=== PATIENT | male | born 1960 | race Caucasian/White ===

== ENCOUNTER → 2017-05-13 | Outpatient (CLI) | payer BC, OTHER ==
[~2017-05-13] VITALS: Ht 175.3 cm; Wt 102.4 kg
[~2017-05-13] MED LIST: ALIGN4 MG PO; ASPIRIN EC81 M1 PO; AVODART0.5 MG PO; CARAFATE1 GM/10 ML PO; CLONAZEPAM 0.50.5 M1 PER TUBE; CYCLOBENZAPRINE10 MG PO; EPA-DHA 720 SO1 EACH PO; FAMCICLOVIR500 MG PO; FLEXERIL PO; FLOMAX PO; FLOMAX0.4 MG PO; GINGER ROOT550 MG PO; HYDROCODON-ACE1 EAC4 PO; HYDROCODON-ACE1 EAC5 PO; HYDROCODON-ACE1 EAC7 PO; HYDROCODON-ACE1 EACH PO; LEVOTHYROXINE0.05 MG PO; LIDOCAINE OINTMENT; LIDODERM TOP; LUNESTA3 MG PO; LYRICA 75 MG CA75 MG PO; NEURONTIN 400400 M1 PO; NIACIN500 MG PO; NUCYNTA100 MG PO; NUCYNTA75 MG PO; OMEGA-31000 M1 PO; ONDANSETRON HCL4 M2 PO; PANTOPRAZOLE SO40 M1 PO; PRILOSEC 20 MG20 MG PO; RESTORIL15 MG PO; TRAZODONE HCL50 MG PO; XANAX XR1 MG PO; ZOLOFT25 MG PO; ZOLOFT50 MG PO
--- NOTE | ~2017-05-13 | HPC ---
[facility] [address] PAIN MANAGEMENT CONSULTATION Name: REY ZAMORA Room #: REG SRINIVAS Sebastian#: [id number] Admission: 05/13/17 Attend Phys: Aldo Sharp DO Discharge: Date of : 60 Report #: [id number] THIS REPORT FOR: //name// CC: Aldo Willams MD DATE OF SERVICE: 05/13/2017 CHIEF COMPLAINT: Neck pain, left upper extremity pain with paresthesias, right ankle pain. HISTORY OF PRESENT ILLNESS: As you know, the patient is a very pleasant 57-year-old male who returns today in followup visit with increasing neck pain, upper back pain, left upper extremity pain with paresthesias and chronic ankle pain. As you are aware, the patient suffered a bimalleolar fracture in July leading to 2 different surgical procedures. He continues to experience chronic right ankle pain from knees from the surgery and fracture. He returns also to discuss possibility of undergoing the next in a series of cervical epidural injections. He has done very well from a cervical radiculopathy standpoint with previous injections. The patient returns today for refill of medications and to discuss the possibility of undergoing the next in the series of cervical epidural injections. ALLERGIES: No known drug allergies. CURRENT MEDICATIONS: Trazodone, sucralfate, Nucynta, levothyroxine, sertraline, ondansetron, tamsulosin, lucio root, pantoprazole, omega 3 fish oil, Lunesta, niacin, aspirin, and alprazolam. SOCIAL HISTORY: The patient reports he continues to smoke 1 pack of tobacco per day. Denies IV or illicit drug use. Denies any chronic alcohol use. He is unaccompanied at today's visit. IMAGING: No new imaging available. PHYSICAL EXAMINATION: VITAL SIGNS: Blood pressure 123/80, pulse 77, respiratory rate 16, unlabored. The patient is 97% on room air, height 5 feet 9 inches tall, weight 225.8 pounds, BMI calculated 33.3. GENERAL: Well developed, well nourished, well-hydrated exogenously obese 57-year-old male who appears his stated age, placing current pain score 5/10. HEENT: Normocephalic, atraumatic. Pupils equal, round, reactive to light. EXTREMITIES: Show no clubbing, no cyanosis, no edema. MUSCULOSKELETAL: The patient shows no spinous process tenderness over the cervical region. There is some myofascial symptoms located paraspinal [address] [address] PAIN MANAGEMENT CONSULTATION Name: ZAMORAREY Room #: REG [facility].#: [id number] Admission: 05/13/17 Attend Phys: Aldo Sharp DO Discharge: Date of : 60 Report #: [id number] musculature of cervical region. Spurling's test positive left, negative right. Deep tendon reflexes at biceps, brachioradialis and triceps equal and symmetrical. The patient does have a well-healed surgical scar, both laterally and medially on the right ankle. There is some swelling around the ankle itself. ASSESSMENT: 1. Cervical radiculopathy. 2. Cervical spondylosis with radiculopathy. 3. Displacement of a cervical intervertebral disk with radiculopathy. 4. Myofascial pain. 5. Right ankle pain status post surgery. PLAN: 1. The patient has returned today in followup visit indicating increasing neck pain and left upper extremity pain typical for his cervical radiculopathy. At this point, the patient indicates pain, no greater than 5/10. He returns today specifically to reinitiate Nucynta therapy. He was doing very well on his medication. This was controlling his baseline cervical radiculopathy and other pain generators including his postherpetic neuralgia. He wishes to restart the medication at this time. He does wish to consider the possibility of undergoing a cervical epidural injection. He requested he trial 2 weeks of Nucynta therapy. If this does not improve his typical cervical radiculopathy, he would return for cervical epidural injection. I agree with this plan. I think this is a conservative way to treat symptoms initially. If they are unsuccessful, then I would move forward with a cervical epidural injection. 2. The patient and I did discuss his recent injury to his ankle. It appears that the surgery went well. He appears stabilized, well healed. He is ambulating with slight antalgic gait, but overall weightbearing effectively. We will defer to the orthopedic team about treatment for his right ankle. 3. The patient was provided a prescription of Nucynta 75 mg dose 1 tab, 4 tabs a day p.r.n. pain. I have given the patient #120, releases of today, 4 weeks from today, 8 weeks from today. He is tolerating this medication well, noted excellent efficacy with its use. We will continue to use it for baseline pain control. 4. We will see the patient back in followup visit in 3 months, earlier if he wishes to undergo the requested cervical epidural injection if medications are ineffective. <ELECTRONICALLY SIGNED> By: Aldo Sharp DO 05/14/17 0833 [id number] Aldo Sharp DO /nt
[2017-05-13 11:24] VITALS: BP 123/80
== END | disposition home or self-care (01) ==
LOC: PAIN 07:06
DX: M54.12 Radiculopathy, cervical region (principal); M47.12 Other spondylosis with myelopathy, cervical region; M50.10 Cervical disc disorder with radiculopathy, unspecified cervical region; M79.1 Myalgia; Z98.890 Other specified postprocedural states; Z68.33 Body mass index [BMI] 33.0-33.9, adult; Z79.899 Other long term (current) drug therapy; Z87.891 Personal history of nicotine dependence

== ENCOUNTER → 2018-09-22 | Outpatient (CLI) | payer BC, OTHER ==
[~2018-09-22] VITALS: Ht 175.3 cm; Wt 106.6 kg
--- NOTE | ~2018-09-22 | HPC ---
[facility] [address] [place] [address] PAIN MANAGEMENT CONSULTATION Name: REY ZAMORA RAFAEL Room #: REG SRIINVAS Sebastian#: [id number] Admission: 09/22/18 Attend Phys: Clarissa Fuentes Discharge: Date of : 60 Report #: [id number] THIS REPORT FOR: //name// CC: Clarissa Sandhue [facility] DATE OF SERVICE: 09/22/2018 CHIEF COMPLAINT: Neck pain, left upper extremity pain with paresthesias and right ankle pain. HISTORY OF PRESENT ILLNESS: This is a very pleasant 58-year-old gentleman who returns to the pain clinic today for refill of medications and increasing neck and arm pain. He tells me that he has been out of his Nucynta for at least a month. He tells me that he has been taking sparingly, sometimes 1 pill a day, sometimes several pills a day. His last scripts were given by us a year ago. He actually did not even fill his 8-week release script due to them expiring since narcotics are good for 6 months only. The patient tells me that his pain score is a 7/10 today, complains of tingly in his left arm and his neck around his left flank area from his shingles pain and he also has pain in his lower back and ankle. He tells me that his pain is worse with activity, sitting and lying down. He is better when he goes to the chiropractor, takes his medicines and repositions himself. He does not have any constipation since he has not been taking his narcotics on a daily basis or any daytime sleepiness. He would like a refill of his medications today and discuss possible options for an injection. ALLERGIES: No known drug allergies. MEDICATIONS: Nucynta 75 mg every 6 hours as needed, trazodone 50 mg at bedtime, Carafate 10 mL twice a day, Synthroid 50 mcg once daily, Zoloft 200 mg daily, Flomax 0.4 mg at bedtime, lucio root as needed, Nexium 40 mg daily, omega-3 fish oil twice a day, Lunesta 3 mg at bedtime, niacin 1000 mg daily, aspirin 81 mg daily and Xanax 1 mg daily. PQRS TODAY: He has a history of osteoarthritis in his spine and his ankle. Denies rheumatoid arthritis. Height is 5 feet 9 inches, weight is 235. BMI is 34.7. Vital signs: Blood pressure 129/90, pulse is 98, respirations 18, oxygen sat is 95. Pain score is 7/10. Fall risk, denies dizziness, does not need help walking or standing and has not fallen in the last 3 months. The patient is not on any blood thinners and denies hypertension medicines. His opioid therapy is greater than 6 weeks. He will sign an opioid contract today. His functional assessment is low. Risk assessment is low and his functional assessment is 44/70. Recreational drug use, the patient denies. He is a former smoker and occasionally drinks alcohol. We did check the prescription monitoring system on this patient and he has not filled any narcotics from our doctors in the past [address] [address] PAIN MANAGEMENT CONSULTATION Name: REY ZAMORA Room #: REG SRINIVAS Sebastian#: [id number] Admission: 09/22/18 Attend Phys: Clarissa Fuentes Discharge: Date of : 60 Report #: [id number] months, which the patient tells us this is true. His 8-week script was voided since it was greater than 6 months old. IMPRESSION: 1. Cervical radiculopathy. 2. Cervical spondylosis with radiculopathy. 3. Displacement of cervical intervertebral disk with radiculopathy. 4. Myofascial pain. 5. Right ankle pain status post surgery. We reviewed the fact that opiate medications are being used to provide analgesia adequate to support activities of daily living, not attempting to achieve a specific pain score on the 0-10 Visual Analog Scale. The current opiate medications are providing sufficient analgesia to allow the patient to participate in activities of daily living. The patient is not exhibiting any aberrant behavior suggestive of drug diversion. The patient is not having any adverse reactions to medications. The patient is not suffering from daytime somnolence or mental acuity changes. The patient is managing opiate-induced constipation with appropriate eyjo-pvm-jshrykn agents and dietary considerations. The patient was counseled on concern for caution with operating a motor vehicle while using opiate medications. A physical exam was performed and the patient's functional status was evaluated. All patients with back pain were advised against the bed rest greater than 4 days and were advised to return to normal activities. Pain score assessment was noted and the treatment plan was reviewed with the patient. All current medications, both prescribed and OTC were reviewed and reconciled on the electronic medical record. Tobacco screening was accomplished and smoking cessation was advised when indicated. BMI was noted and diet/exercise modification was recommended for all patients following outside normal parameters. I reviewed with the patient today their responsibilities to safeguard prescription medications, reviewed their responsibility to utilize medications only as prescribed by the physician. They are to seek and receive pain medications only from 1 physician group ([facility]). They are to use 1 pharmacy and keep the clinic informed if they change pharmacies. Their responsibilities include making followup visits in a timely fashion and to avoid abrupt discontinuation of medication usage. Their responsibilities further include bringing their medications (bottles from the pharmacy with residual pills) to the visit for possible confirmation of pill counts and the patient understands it is their responsibility to submit to random drug screens to ensure both that the medications prescribed are present, and that no other controlled substances are present. All prescriptions provided today were generated electronically. [address] [address] PAIN MANAGEMENT CONSULTATION Name: REY ZAMORA RAFAEL Room #: REG SRINIVAS Sebastian#: [id number] Admission: 09/22/18 Attend Phys: Clarissa Fuentes Discharge: Date of : 60 Report #: [id number] PLAN: 1. The patient returns to the clinic today for medication refill and increasing neck pain and his left upper arm pain typical for his cervical radiculopathy. Today, he tells me that he would like to have an injection if it is time in his neck. Per the records, his last cervical epidural was in 2016, so he may have an injection again. I explained to the patient that he is here for medication management today, so we will make an appointment with Dr. Aldo Sharp in the near future for him to have this epidural done. The patient is agreeable with this. 2. Prescriptions were discussed. The patient has been taking them sparingly, the Nucynta 75 mg, which is for a refill of this medication. I explained to him that we will give him one tablet 4 times a day as he has been on. This typically lasts 1-2 months depending on his pain. Since it has increased recently in his neck, he may take several and then decrease it again as he is able. We appreciate the lowest most effective dose that the patient has been using. Scripts today for #120 with 1 release in 4 weeks were given to the patient. He is tolerating this medicine with good relief of his pain when he continues to take it on a regular basis. 3. The patient will be seen in followup visit in early October and undergo the requested cervical epidural injection by Dr. Aldo Sharp for this cervical radiculopathy. The patient is seen today in collaboration with Dr. Aldo Sharp. <ELECTRONICALLY SIGNED> By: Clarissa Fuentes 09/23/18 0725 [id number] [id number] Clarissa Fuentes /nt
[2018-09-22 12:34] VITALS: BP 129/90
== END ==
LOC: PAIN 10:06
DX: M47.22 Other spondylosis with radiculopathy, cervical region (principal); M50.10 Cervical disc disorder with radiculopathy, unspecified cervical region; M79.18 Myalgia, other site; M25.571 Pain in right ankle and joints of right foot; R20.2 Paresthesia of skin

== ENCOUNTER → 2018-10-07 | Outpatient (CLI) | payer BC, OTHER ==
[~2018-10-07] VITALS: Ht 175.3 cm; Wt 110.0 kg
--- NOTE | ~2018-10-07 | HPC ---
[facility] [place] [address] [address] PAIN MANAGEMENT CONSULTATION Name: REY ZAMORA RAFAEL Room #: REG SWAT[facility]ison Sebastian#: [id number] Admission: 10/07/18 Attend Phys: Aldo Sharp DO Discharge: Date of : 60 Report #: [id number] THIS REPORT FOR: //name// CC: Aldo Willams DATE OF SERVICE: 10/07/2018 REFERRING PHYSICIAN: Ever Willams MD. CHIEF COMPLAINT: Neck pain, left upper extremity pain and paresthesias. HISTORY OF PRESENT ILLNESS: As you know, the patient is a very pleasant 58-year-old male, returning in followup visit requesting to undergo cervical epidural injection under fluoroscopic guidance to address recurrent cervical radicular symptoms. We saw the patient recently on 09/22/2018, where he was reporting pain at a 7/10. He returns today in followup visit stating his pain has not improved with tincture of time and home exercise program. He returns requesting a cervical epidural injection in hopes of improving pain. As you are aware, the patient received excellent benefit with previous injections. He rates pain today at around 5/10. He is placing his pain impact score 44/70. He denies injury or trauma, returning today to undergo cervical epidural injection. ALLERGIES: No known drug allergies. CURRENT MEDICATIONS: Nucynta 75 mg every 6 hours p.r.n. for pain, trazodone 50 mg p.o. at bedtime, sucralfate 1 gram per day, levothyroxine 50 mcg per day, sertraline 50 mg per day, ondansetron 4 mg p.r.n., tamsulosin 0.4 mg once a day, lucio root 550 mg once a day, pantoprazole 40 mg per day, omega-3 fish oil 1 tab per day, Lunesta 3 mg p.o. at bedtime, niacin 500 mg once a day, aspirin 81 mg per day, alprazolam 1 mg p.r.n. SOCIAL HISTORY: The patient denies tobacco, alcohol or illicit drug use. He is unaccompanied today. IMAGING: No new imaging available. PHYSICAL EXAMINATION: VITAL SIGNS: Blood pressure 127/80, pulse is 88, respiratory rate 16 and unlabored, the patient is 96% on room air. Height 5 feet 9 inches tall, weight 242.6 pounds, BMI calculated 35.8. GENERAL: Well-developed, well-nourished, well-hydrated, morbidly obese 58-year-old male, appears stated age, placing current pain score 5/10. HEENT: Normocephalic, atraumatic. Pupils equal, round, reactive to light. EXTREMITIES: Show no clubbing, no cyanosis, no edema. [facility] [address] [place] [address] PAIN MANAGEMENT CONSULTATION Name: REY ZAMORA [id number] Admission: 10/07/18 Attend Phys: Aldo Sharp DO Discharge: Date of : 60 Report #: [id number] MUSCULOSKELETAL: Upper extremity strength appears symmetrical 5/5, intact to light touch from C5-T1 dermatomes. Spurling test is positive left, negative right. ASSESSMENT: 1. Cervical radiculopathy. 2. Cervical spondylosis with radiculopathy. 3. Displacement of a cervical intervertebral disk with radiculopathy. 4. Myofascial pain. 5. Chronic intractable pain. PLAN: 1. The patient returns today in followup visit to undergo cervical epidural injection under fluoroscopic guidance. He has trialled conservative treatment options, but has not noted any improvement in symptoms. He returns requesting to undergo a cervical epidural injection in hopes of improving pain. He has been advised risks and benefits, states understood and wished to proceed. 2. No medication changes made at today's visit. The patient to continue current medical therapy as previously prescribed. 3. We will see the patient back in followup visit on an as needed basis for possible next in the series of cervical epidural injections. PROCEDURE NOTE DESCRIPTION OF PROCEDURE: C7-T1 cervical epidural steroid injection under fluoroscopic guidance. After obtaining written consent, the patient was taken back to fluoroscopy suite, placed in prone position with separate pillows under chest and forehead to decrease cervical lordosis. Skin overlying cervical area then prepped and draped in aseptic fashion. C7-T1 cervical interspace identified by AP fluoroscopy. Skin and subcutaneous tissue overlying target site of injection was anesthetized with 3 mL of 1% lidocaine. A 20-gauge 3-1/2 inch Tuohy needle advanced under fluoroscopic guidance towards the epidural space using a midline approach. Epidural space identified using loss of resistance to air technique. After negative aspiration for heme or cerebrospinal fluid, 1 mL of Omnipaque injected. A cervical epidurogram confirmed using both AP and lateral fluoroscopy. After negative aspiration for heme or cerebrospinal fluid, 5 mL of a solution containing 2 mL 40 mg per mL, 80 mg total triamcinolone, 3 mL lidocaine 1% injected slowly. Needle retracted alf, flushed with 1 mL of 1% lidocaine. Needle was then removed. Sterile bandage placed over injection site. No new motor deficits present in the upper extremities following procedure. The patient tolerated procedure well, carefully escorted to recovery room in [address] [place] [address] PAIN MANAGEMENT CONSULTATION Name: REY ZAMORA Room #: REG SRINIVAS Sebastian#: [id number] Admission: 10/07/18 Attend Phys: Aldo Sharp DO Discharge: Date of : 60 Report #: [id number] stable condition. No apparent complications. After meeting discharge criteria, the patient discharged home. By: 0722 [id number] Aldo Sharp DO /nt
[2018-10-07 11:23] VITALS: BP 127/80
--- NOTE | 2018-10-07 11:41 | NUR ---
Pain Clinic Assessment: 1. History of Osteoarthritis: spine History of Rheumatoid Arthritis: Not Applicable 2. Height: 5 ft. 9 in. 175.3 cm. Weight: 242.6 lb. oz. 110.043 kg. Patient's BMI: 35.8 3. Vital Signs: BP: 127/80 Pulse: 88 Resp: 16 Temp: 02 Sat: 96 ECG Mon: 4. Pain Intensity: 5 5. Fall Risk: Dizziness: N Needs help standing or walking: N Fallen in the last 3 months: N Fall risk comments: 6. Patient on Blood Thinner: None 7. History of Hypertension: N 8. Opioid Therapy greater than 6 weeks: Y Opiate Contract Signed: 9. Risk Assessment Tool Provided: low-2 10. Functional Assessment Tool: / 11. Recreational Drug Use: Never Drug Type: Tobacco Use: Former Smoker Tobacco Type: Amount or Packs/day: How Many Years: Alcohol Use: Yes Frequency: Special Occasions Quant: 1-2
== END | disposition home or self-care (01) ==
LOC: PAIN 08:54
DX: M54.12 Radiculopathy, cervical region (principal); M54.2 Cervicalgia; Z79.82 Long term (current) use of aspirin; Z79.899 Other long term (current) drug therapy; Z87.891 Personal history of nicotine dependence

== ENCOUNTER → 2019-06-22 | Outpatient (CLI) | payer BC, OTHER ==
[~2019-06-22] VITALS: Ht 175.3 cm; Wt 105.7 kg
[~2019-06-22] MED LIST changes: +FLONASE 0.05%50 MCG NASAL; +VOLTAREN GEL 1100 G2 TOP; +ZETIA10 MG PO
[2019-06-22 10:04] VITALS: BP 126/80
--- NOTE | 2019-06-22 10:16 | NUR ---
Pain Clinic Assessment: 1. History of Osteoarthritis: spine History of Rheumatoid Arthritis: Not Applicable 2. Height: 5 ft. 9 in. 175.3 cm. Weight: 233.0 lb. oz. 105.688 kg. Patient's BMI: 34.4 3. Vital Signs: BP: 126/80 Pulse: 65 Resp: 14 Temp: 02 Sat: 96 ECG Mon: 4. Pain Intensity: 8-9 5. Fall Risk: Dizziness: N Needs help standing or walking: N Fallen in the last 3 months: N Fall risk comments: 6. Patient on Blood Thinner: None 7. History of Hypertension: N 8. Opioid Therapy greater than 6 weeks: Y Opiate Contract Signed: 09/22/18 9. Risk Assessment Tool Provided: low-2 10. Functional Assessment Tool: 11. Recreational Drug Use: Never Drug Type: Tobacco Use: Former Smoker Tobacco Type: Amount or Packs/day: How Many Years: Alcohol Use: Yes Frequency: Special Occasions Quant:
--- NOTE | 2019-06-23 08:36 | HPC ---
[facility] [address] [place] [address] PAIN MANAGEMENT CONSULTATION Name: REY ZAMORA RAFAEL Room #: REG SRINIVAS Sebastian#: [id number] Admission: 06/22/19 ������������������ Attend Phys: Clarissa Fuentes Discharge: ������������������ Date of : 60 Report #: [id number] THIS REPORT FOR: //name// CC: Clarissa Blue MD DATE OF SERVICE: 06/22/2019 CHIEF COMPLAINT: Neck pain, left upper extremity pain and paresthesias and right ankle pain. HISTORY OF PRESENT ILLNESS: This is a very pleasant 59-year-old gentleman who returns to the pain clinic today for refill of his medications that he uses to help treat his ongoing cervical radiculopathy as well as occasional low back pain and right ankle pain. He reports a pain score of 8-9 today. He tells me it is a burning numbness along his postherpetic neuralgia area in his midback that radiates around to his left side, that he also has ongoing pain in his neck that radiates from his neck into his arm as well as right ankle pain from a previous fracture. The weather increases his pain as well as activity, that he finds periodic epidurals injections as well as repositioning and medications very beneficial. The patient reports that his cervical epidural that he received in October helped until about a month ago, at least 70%. He said initially he had no pain at all and then has gradually returned. He is wondering about another injection since it has been almost 9 months since the previous one. ALLERGIES: No known drug allergies. CURRENT LIST OF MEDICATIONS: Flonase, Zetia 10 mg daily, Nucynta 75 mg p.r.n., trazodone 50 mg at bedtime, Carafate p.r.n., Synthroid 50 mcg daily, Zoloft 250 mg daily, Flomax 0.4 mg at bedtime, Protonix 40 mg b.i.d., fish oil, Lunesta 3 mg at bedtime, aspirin 81 mg daily, Xanax 1 mg daily and Advil p.r.n. PQRS: 1. 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 Denies any rheumatoid arthritis. 2. Height is 5 feet 9 inches, weight is 233, BMI is 34. 3. Vital signs 126/80, pulse is 65, respirations 14, oxygen sat is 96. 4. Pain score is 8-9. 5. Denies dizziness, does not need help walking or standing, has not fallen in the last 3 months. 6. The patient is not on any blood thinners and does not take medicine for hypertension. [address] [address] PAIN MANAGEMENT CONSULTATION Name: REY ZAMORA Room #: REG SRINIVAS Sebastian#: [id number] Admission: 06/22/19 ������������������ Attend Phys: Clarissa Fuentes Discharge: ������������������ Date of : 60 Report #: [id number] 7. Opioid therapy is greater than 6 weeks; therefore, an opioid signed contract is on the chart. Risk assessment tool is low. Functional assessment is 44/70. 8. Recreational drug use, he denies. He is a former smoker and occasionally drinks alcohol. According to the prescription monitoring system, the patient's last fill of his Nucynta was in March. He does take this medication very sparingly. We last gave him his medication in September. PHYSICAL EXAMINATION: GENERAL: This is a well-developed, well-nourished, well-hydrated, morbidly obese 59-year-old gentleman who appears his stated age, placing his current pain score at 8-9 today. HEENT: Normocephalic, atraumatic. Pupils equal, round and reactive to light. EXTREMITIES: No clubbing, no cyanosis, no edema. MUSCULOSKELETAL: Upper extremity strength appears symmetrical at 5/5, does complain of neck pain that radiates into his left arm following the C5-T1 dermatomal distribution, also has some burning in his thoracic spine following his normal peripheral neuropathy, postherpetic neuropathy location. The patient also complains of right ankle tenderness with slight edema present today. ASSESSMENT: 1. Cervical radiculopathy. 2. Cervical spondylosis with radiculopathy. 3. Displacement of cervical intervertebral disk with radiculopathy. 4. Myofascial pain. 5. Chronic intractable pain. 6. Osteoarthritis of the right ankle. 7. Postherpetic neuralgia. He has had multiple bouts of shingles. We reviewed the fact that opiate medications are being used to provide analgesia adequate to support activities of daily living, not attempting to achieve a specific pain score on the 0-10 Visual Analog Scale. The current opiate medications are providing sufficient analgesia to allow the patient to participate in activities of daily living. The patient is not exhibiting any aberrant behavior suggestive of drug diversion. The patient is not having any adverse reactions to medications. The patient is not suffering from daytime somnolence or mental acuity changes. The patient is managing opiate-induced constipation with appropriate sjqp-jwf-zepvubj agents and dietary considerations. The patient was counseled on concern for caution with operating a motor vehicle while using opiate medications. A physical exam was performed and the patient's functional status was evaluated. All patients with back pain were advised against the bed rest greater than 4 days and were advised to return to normal activities. Pain score assessment was noted and the treatment plan was reviewed with the patient. All current [facility] [address] [place] [address] PAIN MANAGEMENT CONSULTATION Name: REY ZAMORA RAFAEL Room #: REG CL Romulo#: [id number] Admission: 06/22/19 ������������������ Attend Phys: Clarissa MORALES Rosadoyolette Discharge: ������������������ Date of : 60 Report #: [id number] medications, both prescribed and OTC were reviewed and reconciled on the electronic medical record. Tobacco screening was accomplished and smoking cessation was advised when indicated. BMI was noted and diet/exercise modification was recommended for all patients following outside normal parameters. I reviewed with the patient today their responsibilities to safeguard prescription medications, reviewed their responsibility to utilize medications only as prescribed by the physician. They are to seek and receive pain medications only from 1 physician group ( [facility]). They are to use 1 pharmacy and keep the clinic informed if they change pharmacies. Their responsibilities include making followup visits in a timely fashion and to avoid abrupt discontinuation of medication usage. Their responsibilities further include bringing their medications (bottles from the pharmacy with residual pills) to the visit for possible confirmation of pill counts and the patient understands it is their responsibility to submit to random drug screens to ensure both that the medications prescribed are present, and that no other controlled substances are present. All prescriptions provided today were generated electronically. PLAN: 1. We discussed treatment options with the patient today. I believe the patient would benefit from another cervical epidural since it has been 9 months since his previous injection. He gets significant benefit from these procedures. I will schedule him with Dr. Aldo Sharp in the next week to have a cervical epidural injection performed. 2. We will refill his Nucynta 75 mg, #120 for today and 4-week release. The patient takes these very sparingly and he safeguards them when he is not using them. He finds they are beneficial in helping with some of his postherpetic neuralgia as well as his ongoing cervical radiculopathy pain and osteoarthritis. He denies any problems with constipation when he takes this medication. 3. The patient is complaining of increased right ankle pain from a previous fracture from several years ago. We will try some Voltaren gel that he can use on this ankle when his pain has flared. Scripts given for 2 tubes with 2 additional refills. 4. The patient is seen in collaboration with Dr. Aldo Sharp today. ��������������������������������������������� <ELECTRONICALLY SIGNED> ���������������������������������������� By: Clarissa Fuentes ��������������������������������������������� 06/23/19 0836 [id number] Clarissa Fuentes /sandy
== END ==
LOC: PAIN 06:48
DX: M47.22 Other spondylosis with radiculopathy, cervical region (principal); M50.10 Cervical disc disorder with radiculopathy, unspecified cervical region; M79.18 Myalgia, other site; M19.071 Primary osteoarthritis, right ankle and foot; G89.4 Chronic pain syndrome; B02.29 Other postherpetic nervous system involvement; Z79.899 Other long term (current) drug therapy

== ENCOUNTER → 2019-06-29 | Outpatient (CLI) | payer BC, OTHER ==
[~2019-06-29] VITALS: Ht 175.3 cm; Wt 105.7 kg
--- NOTE | ~2019-06-29 | HPC ---
[facility] [place] [address] [address] PAIN MANAGEMENT CONSULTATION Name: REY ZAMORA RAFAEL Room #: REG SRINIVAS Romulo#: [id number] Admission: 06/29/19 Attend Phys: Aldo Sharp DO Discharge: Date of : 60 Report #: [id number] THIS REPORT FOR: //name// CC: Aldo Willams MD DATE OF SERVICE: 06/29/2019 CHIEF COMPLAINT: Neck pain, left upper extremity pain with paresthesias. HISTORY OF PRESENT ILLNESS: As you know, the patient is a very pleasant 59-year-old male who returns today in followup visit to undergo cervical epidural injection under fluoroscopic guidance. He was seen in our clinic on 06/22/2019 for medication management. At that visit, he had requested a cervical epidural injection. He made today's appointment to undergo the procedure. The patient denies injury or trauma that may have led to symptom continuation and progressive worsening. He returns today in followup visit to undergo the cervical epidural injection in hopes of building on success of previous intervention. The patient reports improvement with the previous cervical epidural injection of about 80%. This in combination with the medications work well for pain control. He returns to undergo this epidural injection today. ALLERGIES: No known drug allergies. CURRENT MEDICATIONS: Flonase, Zetia, Nucynta, trazodone, Carafate, Synthroid, Zoloft, Flomax, Protonix, Lunesta, aspirin, and Xanax. SOCIAL HISTORY: The patient denies tobacco, alcohol, IV or illicit drug use. He is unaccompanied today. IMAGING: No new imaging available. PHYSICAL EXAMINATION: VITAL SIGNS: Blood pressure 134/94, pulse 72, respiratory rate 14 and unlabored. The patient is 97% on room air. Height 5 feet 9 inches tall, weight 266 pounds, BMI calculated 34.4. GENERAL: Well-developed, well-nourished, well-hydrated 59-year-old male, appearing stated age, placing current pain score at 8/10. HEENT: Normocephalic, atraumatic. Pupils equal, round, and reactive to light. EXTREMITIES: Show no clubbing, no cyanosis, no edema. MUSCULOSKELETAL: Upper extremity strength is symmetrical 5/5. Spurling's test positive left, negative right. Cervical provocation testing is met with increasing pain with leftward rotation and lateral flexion. There does not appear to be any change in pain with forward flexion or extension. Muscle bulk [address] [address] PAIN MANAGEMENT CONSULTATION Name: REY ZAMORA Room #: REG [facility]#: [id number] Admission: 06/29/19 Attend Phys: Aldo Sharp DO Discharge: Date of : 60 Report #: [id number] and tone is symmetrical in comparing left and right upper extremities. He is intact to light touch from C5 through T1 dermatomes. ASSESSMENT: 1. Cervical radiculopathy. 2. Cervical spondylosis with radiculopathy. 3. Displacement of cervical intervertebral disk with radiculopathy. 4. Chronic intractable pain. 5. Osteoarthritis of the ankle. PLAN: 1. The patient has returned today in followup visit to undergo cervical epidural injection under fluoroscopic guidance. This in combination with medication management provides excellent benefit and pain control up to 80% improvement in overall pain. He returns today requesting the injection to be provided today. I have advised him of the risks and the benefits of this procedure. These risks include but are not necessarily limited to bleeding, bruising, infection, worsening pain, no relief of pain, also risk of temporary or permanent muscle weakness, temporary or permanent nerve damage, possible paralysis, and . The patient states understood and wished to proceed. 2. No medication changes made at today's visit. The patient will continue current medical therapy as previously prescribed. 3. We will see the patient back in followup visit on an as-needed basis, possible next in a series of cervical epidural injections. Otherwise, we will see him back for medication management in 3 months. PROCEDURE NOTE DESCRIPTION OF PROCEDURE: C7-T1 cervical epidural steroid injection under fluoroscopic guidance. After obtaining written consent, the patient was taken back to fluoroscopy suite, placed in prone position with separate pillows under chest and forehead to decrease cervical lordosis. Skin overlying the cervical area then prepped and draped in aseptic fashion. The C7-T1 cervical interspace identified by AP fluoroscopy. Skin and subcutaneous tissue overlying target site of injection anesthetized with 3 mL of 1% lidocaine. A 20-gauge 3-1/2 inch Tuohy needle advanced under fluoroscopic guidance towards the epidural space using midline approach. Epidural space identified using loss of resistance to air technique. After negative aspiration for heme or cerebrospinal fluid, 1 mL of Omnipaque injected. A cervical epidurogram confirmed using both AP and lateral fluoroscopy. After negative aspiration for heme or cerebrospinal fluid, 5 mL of a solution containing 2 mL 40 mg per mL, 80 mg total triamcinolone along with 3 mL of lidocaine 1% injected slowly. Needle retracted at approximately half way, flushed with 1 mL of 1% lidocaine and then [address] [address] PAIN MANAGEMENT CONSULTATION Name: REY ZAMORAN Room #: REG CLI LocBhavesh#: [id number] Admission: 06/29/19 Attend Phys: Aldo Sharp DO Discharge: Date of : 60 Report #: [id number] removed. Sterile bandage placed over injection site. No new motor deficits present in lower extremity following the procedure. The patient tolerated the procedure well, carefully escorted to recovery room in stable condition. No apparent complications. After meeting discharge criteria, the patient was discharged home. By: [id number] Aldo Sharp DO /nt
[2019-06-29 12:39] VITALS: BP 134/94
--- NOTE | 2019-06-29 12:40 | NUR ---
Pain Clinic Assessment: 1. History of Osteoarthritis: spine History of Rheumatoid Arthritis: Not Applicable 2. Height: 5 ft. 9 in. 175.3 cm. Weight: 233.0 lb. oz. 105.688 kg. Patient's BMI: 34.4 3. Vital Signs: BP: 134/94 Pulse: 72 Resp: 14 Temp: 02 Sat: 97 ECG Mon: 4. Pain Intensity: 8 5. Fall Risk: Dizziness: N Needs help standing or walking: N Fallen in the last 3 months: N Fall risk comments: 6. Patient on Blood Thinner: None 7. History of Hypertension: N 8. Opioid Therapy greater than 6 weeks: Y Opiate Contract Signed: 09/22/18 9. Risk Assessment Tool Provided: low-2 10. Functional Assessment Tool: 11. Recreational Drug Use: Never Drug Type: Tobacco Use: Former Smoker Tobacco Type: Amount or Packs/day: How Many Years: Alcohol Use: Yes Frequency: Quant:
== END | disposition home or self-care (01) ==
LOC: PAIN 06:58
DX: M47.22 Other spondylosis with radiculopathy, cervical region (principal); M50.20 Other cervical disc displacement, unspecified cervical region; G89.29 Other chronic pain; M19.079 Primary osteoarthritis, unspecified ankle and foot; Z79.899 Other long term (current) drug therapy; Z79.82 Long term (current) use of aspirin; Z87.891 Personal history of nicotine dependence

== ENCOUNTER → 2019-09-07 | Outpatient (CLI) | payer BC, OTHER ==
[~2019-09-07] VITALS: Ht 175.3 cm; Wt 101.2 kg
[~2019-09-07] MED LIST changes: -LEVOTHYROXINE0.05 MG PO; +SYNTHROID75 MCG PO; +VOLTAREN GEL 1100 G1 TOP
[2019-09-07 08:59] VITALS: BP 142/100
--- NOTE | 2019-09-07 09:17 | NUR ---
Pain Clinic Assessment: 1. History of Osteoarthritis: spine History of Rheumatoid Arthritis: denies 2. Height: 5 ft. 9 in. 175.3 cm. Weight: 223.0 lb. oz. 101.152 kg. Patient's BMI: 32.9 3. Vital Signs: BP: 142/100 Pulse: 70 Resp: 14 Temp: 02 Sat: 98 ECG Mon: 4. Pain Intensity: 8-9 5. Fall Risk: Dizziness: N Needs help standing or walking: N Fallen in the last 3 months: N Fall risk comments: 6. Patient on Blood Thinner: None 7. History of Hypertension: N 8. Opioid Therapy greater than 6 weeks: Y Opiate Contract Signed: 09/22/18 9. Risk Assessment Tool Provided: low-2 10. Functional Assessment Tool: 11. Recreational Drug Use: Never Drug Type: Tobacco Use: Former Smoker Tobacco Type: Amount or Packs/day: How Many Years: Alcohol Use: Yes Frequency: Special Occasions Quant:
--- NOTE | 2019-09-08 12:58 | HPC ---
[facility] [address] [place] [address] PAIN MANAGEMENT CONSULTATION Name: REY ZAMORA RAFAEL Room #: REG [facility] LocBhavesh#: [id number] Admission: 09/07/19 Attend Phys: Aldo Sharp DO Discharge: Date of : 60 Report #: [id number] THIS REPORT FOR: //name// CC: Aldo Willams MD DATE OF SERVICE: 09/07/2019 CHIEF COMPLAINT: Low back pain. HISTORY OF PRESENT ILLNESS: As you know, the patient is a very pleasant 59-year-old male with recurrent low back pain. The patient is able to locate pain directly over the facet joints of the lower lumbar spine. He denies specific injury or trauma that may have led to symptom occurrence. He has trialled conservative hxty-fev-trkdizq medications, even sought evaluation with his PCP. He continues to utilize exercise programs at home, but has not noticed much in the way of improvement. He has been referred back to our service to discuss interventional treatment options. ALLERGIES: No known drug allergies. CURRENT MEDICATIONS: See list. SOCIAL HISTORY: The patient denies tobacco, alcohol, IV or illicit drug use. He is working, not receiving workmen's compensation, unaccompanied today. IMAGING: No new imaging available. PHYSICAL EXAMINATION: VITAL SIGNS: Blood pressure 142/100, pulse is 70, respiratory rate 14 and unlabored. The patient is 98% on room air. Height 5 feet 9 inches tall, weight 223 pounds, BMI calculated 32.9. GENERAL: Well-developed, well-nourished, well-hydrated 59-year-old male appearing stated age, pain is rated around 8-9/10. HEENT: Normocephalic, atraumatic. Pupils equal, round, and reactive to light. Extraocular muscles are intact. NEUROLOGIC: Speech fluent. The patient deemed a good historian. EXTREMITIES: Show no clubbing, no cyanosis, no edema. MUSCULOSKELETAL: There is palpatory tenderness over the paraspinal musculature of lower lumbar spine. No spinous process tenderness. Seated straight leg raising negative. Supine straight leg raising negative. Nuha's test is negative. Modified Gaenslen's positive for axial low back pain. Ankle clonus negative. Babinski is negative. Muscle bulk and tone equal and symmetrical in comparing lower extremity musculature. Lumbar provocation testing including extension, rotation, lateral flexion all intensifies axial back pain. No [address] [address] PAIN MANAGEMENT CONSULTATION Name: REY ZAMORA Room #: REG CLI BhaveshBhavesh#: [id number] Admission: 09/07/19 Attend Phys: Aldo Sharp DO Discharge: Date of : 60 Report #: [id number] radiation of symptoms. ASSESSMENT: 1. Lumbosacral spondylosis without radiculopathy. 2. Facet arthropathy of the lumbar spine. 3. Chronic low back pain. PLAN: 1. Based on today's physical exam, the history the patient has provided, the description the patient uses in regards to pain as well as the location of symptoms, likely source of the patient's pain is the facet joints of the lower lumbar spine. The patient is able to localize pain directly over the L5-S1 facet joints bilaterally. Provocation testing does confirm facet arthropathy generated symptoms. We discussed with the patient the treatment options and following were discussed today. We discussed with the patient the treatment options for facet arthropathy pain include physical therapy, stretching exercise, core strengthening and a concerted effort at weight loss. We discussed medication management utilizing nonsteroidal anti-inflammatories. We discussed intra-articular facet injections, medial branch nerve blocks and radiofrequency lesioning as treatment options. We also discussed surgical options, though I do not feel the patient is a candidate at this time. After reviewing the risks and benefits of all the proposed treatment options, the patient chose to begin with intra-articular facet injections under fluoroscopic guidance. 2. The patient was advised risks and benefits of intra-articular facet injections. These risks include but are not necessarily limited to bleeding, bruising, infection, worsening of pain, no relief of pain, also risk of temporary or permanent muscle weakness, temporary or permanent nerve damage, possible paralysis, post-dural puncture headache and . The patient states understood and wished to proceed. 3. No medication changes made at today's visit. The patient will continue current medical therapy as previously prescribed. 4. We will see the patient back in followup visit on an as needed basis for next in the series of intra-articular facet injections. PROCEDURE NOTE DESCRIPTION OF PROCEDURE: Bilateral L5-S1 intra-articular facet injections under fluoroscopic guidance. This is the first procedure of the first series that the patient is undergoing. After obtaining written consent, the patient was taken back to the fluoroscopy suite and placed in a prone position with a pillow under the abdomen to decrease the lumbar lordosis and to facilitate needle entry into the facet joints. [facility] [address] [place] [address] PAIN MANAGEMENT CONSULTATION Name: REY ZAMORAN Room #: REG SRINIVAS Sebastian#: [id number] Admission: 09/07/19 Attend Phys: Aldo Sharp DO Discharge: Date of : 60 Report #: [id number] skin overlying the lumbosacral area was prepped and draped in an aseptic fashion. AP and lateral fluoroscopic imaging was obtained. Optimal position of the fluoroscope occurred when the joint line was first visualized. The facet joints were identified radiographically directed adjacent to the superior articular process of the caudad vertebrae. The skin overlying the target site of injection was anesthetized using 3 mL of 1% lidocaine. A 22-gauge 3-1/2 inch spinal needle with a bent tip was advanced towards the L5-S1 facet joints on the right and left side under fluoroscopic guidance. The firm posterior capsule had its characteristic feel and the needle was advanced a few additional millimeters beyond the joint capsule into the joint space, but not into the articular cartilage. After the joint space was entered and aspiration was negative for heme or CSF, 0.2 mL of Omnipaque was injected demonstrating a characteristic facet arthrogram. After negative aspiration for heme or CSF, 1.5 mL of a solution containing 1 mL, 40 mg per mL, 40 mg total triamcinolone and 0.5 mL of bupivacaine 0.5% was slowly injected at each of 2 facets. The needle was then removed. There were no apparent complications. The patient tolerated the procedure well and was carefully escorted to the recovery room in stable condition. The VAS was 8-9/10 before the procedure and 0/10 ten minutes after the procedure. After meeting discharge criteria, the patient was discharged home. <ELECTRONICALLY SIGNED> By: Aldo Sharp DO 09/08/19 [id number] Aldo Sharp DO /nt
== END | disposition home or self-care (01) ==
LOC: PAIN 06:46
DX: M54.5 Low back pain (principal); M47.817 Spondylosis without myelopathy or radiculopathy, lumbosacral region; M47.816 Spondylosis without myelopathy or radiculopathy, lumbar region; G89.29 Other chronic pain; Z79.899 Other long term (current) drug therapy; Z79.82 Long term (current) use of aspirin; Z87.891 Personal history of nicotine dependence

== ENCOUNTER → 2020-05-16 | Outpatient (CLI) | payer BC, OTHER ==
[~2020-05-16] VITALS: Ht 175.3 cm; Wt 105.1 kg
[~2020-05-16] MED LIST changes: +LEVO-T100 MCG PO
[2020-05-16 10:22] VITALS: BP 112/83
--- NOTE | 2020-05-16 10:43 | NUR ---
Pain Clinic Assessment: 1. History of Osteoarthritis: spine History of Rheumatoid Arthritis: denies 2. Height: 5 ft. 9 in. 175.3 cm. Weight: 231.8 lb. oz. 105.144 kg. Patient's BMI: 34.2 3. Vital Signs: BP: 112/83 Pulse: 80 Resp: 16 Temp: 02 Sat: 96 ECG Mon: 4. Pain Intensity: 7-8 5. Fall Risk: Dizziness: N Needs help standing or walking: N Fallen in the last 3 months: N Fall risk comments: 6. Patient on Blood Thinner: xarelto 7. History of Hypertension: N 8. Opioid Therapy greater than 6 weeks: Y Opiate Contract Signed: 09/22/18 9. Risk Assessment Tool Provided: low-2 10. Functional Assessment Tool: 11. Recreational Drug Use: Never Drug Type: Tobacco Use: Former Smoker Tobacco Type: Amount or Packs/day: How Many Years: Alcohol Use: Yes Frequency: Special Occasions Quant: 1
--- NOTE | 2020-05-17 11:01 | HPC ---
[facility] [address] [place] [address] PAIN MANAGEMENT CONSULTATION Name: REY ZAMORA RAFAEL Room #: REG SRINIVAS GonzalezBhaveshTianBhavesh#: [id number] Admission: 05/16/20 Attend Phys: Aldo Sharp DO Discharge: Date of : 60 Report #: [id number] THIS REPORT FOR: cc: Ever Willams MD, Rene P. MD Johnson, James E. DO ~ DATE OF SERVICE: 05/16/2020 REFERRING PHYSICIAN: Ever Willams MD CHIEF COMPLAINT: Neck pain, left upper extremity pain with paresthesias. HISTORY OF PRESENT ILLNESS: As you know, the patient is a very pleasant 60-year-old male who returns today in followup visit with recurrent neck pain, left upper extremity pain with paresthesias. The patient reports typical distribution of his cervical radiculopathy. He indicates no injury or trauma that may have led to recurrence of symptoms. He states he has tried his best to maintain a limited level of activity and egiz-ibp-gkujjur medications to control his symptoms, which reoccurred mid pandemic. The patient was resistant to return to undergo cervical epidural injections as he was fearful of the exposure potentials to COVID-19. He reports today pain level of 7-8/10, describes the pain as constant numbness, tingling, sharp and aching. He returns today to undergo cervical epidural injection under fluoroscopic guidance and to receive refills of his Nucynta, he takes for pain control with good effects. ALLERGIES: No known drug allergies. CURRENT MEDICATIONS: Levothyroxine 100 mcg per day, Voltaren gel 1% solution apply topically up to 4 times a day, Nucynta 75 mg every 6 hours p.r.n. for pain, alprazolam 1 mg once a day, Lunesta 3 mg p.o. at bedtime, pantoprazole 40 mg once a day, tamsulosin 0.4 mg once a day, ondansetron 4 mg p.r.n., sertraline 50 mg per day, sucralfate 1 gram 3 times a day, trazodone 50 mg p.o. at bedtime, Zetia 10 mg per day, fluticasone 2 sprays each nostril per day. IMAGING: No new imaging available. PHYSICAL EXAMINATION: VITAL SIGNS: Blood pressure 112/83, pulse 80, respiratory rate 16 and unlabored. The patient is 96% on room air. Height 5 feet 9 inches tall. Weight 231.8 pounds, BMI calculated 34.2. GENERAL: Well-developed, well-nourished, well-hydrated exogenously obese 60-year-old male appearing stated age, pain is rated today at approximately 7-8/10. HEENT: Normocephalic, atraumatic. Pupils equal, round and reactive. Extraocular muscles are intact. [address] [address] PAIN MANAGEMENT CONSULTATION Name: ERY ZAMORA [facility] #[facility] [id number] Admission: 05/16/20 Attend Phys: Aldo Sharp DO Discharge: Date of : 60 Report #: [id number] NEUROLOGIC: Speech fluent. The patient deemed a good historian. EXTREMITIES: Show no clubbing, no cyanosis, no edema. MUSCULOSKELETAL: Upper extremity strength appears symmetrical 5/5. Muscle bulk and tone equal and symmetrical in comparing left upper extremity to right. Deep tendon reflexes are symmetrical at biceps, brachialis and triceps. Spurling's test positive left and negative right. Cervical provocation testing including rotation and lateral flexion to the left cause intensification of pain. Extension is normal. Forward flexion is mildly restricted with a slight increase in left neck pain. ASSESSMENT: 1. Symptomatic cervical radiculopathy. 2. Cervical spondylosis with radiculopathy. 3. Displacement of cervical intervertebral disk with radiculopathy. 4. Chronic intractable pain. PLAN: 1. The patient returns today in followup visit with recurrence of cervical radicular symptoms involving the neck and left upper extremity. He has done very well with previous cervical epidural injections reporting up to 70-80% improvement in overall pain. Unfortunately, the patient's symptoms began to return spontaneously about midway through the sequestration time with COVID-19 somewhere between February and early March. He has been trying conservative treatment without efficacy. He has made today's appointment to undergo cervical epidural injection under fluoroscopic guidance. He is also requesting refill on medications at today's visit. The patient indicates good efficacy with the combination of medications and cervical epidural injections. He denies any new injury or trauma that may have led to symptom reoccurrence. The patient was advised risks and benefits of a cervical epidural injection. These risks include but are not necessarily limited to bleeding, bruising, infection, worsening of pain, no relief of pain, also risk of temporary or permanent muscle weakness, temporary or permanent nerve damage, possible paralysis and . The patient states understood and wished to proceed. 2. The patient was provided a refill prescription of his Nucynta 75 mg dose 1 tab p.o. q. 6 hours p.r.n. for pain. I have given the patient #120 tablets to release today and 4 weeks from today, 2 months' worth of medication. The patient was advised to continue to utilize the medication on an as needed basis. All prescriptions sent via e-scribed to local pharmacy. 3. We will see the patient back in followup visit on an as needed basis for further interventional treatments. We are hopeful the patient will see good and prolonged benefit with today's cervical epidural injection. DESCRIPTION OF PROCEDURE: C7-T1 cervical epidural steroid injection under fluoroscopic guidance. [address] [address] PAIN MANAGEMENT CONSULTATION Name: REY ZAMORA Room #: REG SRINIVAS Sebastian#: [id number] Admission: 05/16/20 Attend Phys: Aldo Sharp DO Discharge: Date of : 60 Report #: [id number] After obtaining written consent, the patient was taken back to fluoroscopy suite, placed in a prone position with separate pillows under chest and forehead to decrease cervical lordosis. Skin overlying the cervical area then prepped and draped in aseptic fashion. C7-T1 cervical interspace identified by AP fluoroscopy. Skin and subcutaneous tissue overlying target site injection anesthetized with 3 mL of 1% lidocaine. A 20-gauge 3-1/2 inch Tuohy needle advanced under fluoroscopic guidance towards the epidural space using a midline approach. Epidural space identified using loss of resistance to air technique. After negative aspiration for heme or cerebrospinal fluid, 1 mL of Omnipaque injected. A cervical epidurogram was confirmed using both AP and lateral fluoroscopy. After negative aspiration for heme or cerebrospinal fluid, 5 mL of solution containing 2 mL 40 mg per mL, 80 mg total triamcinolone along with 3 mL of lidocaine 1% injected slowly. Needle retracted skilled nursing, flushed with 1 mL of 1% lidocaine and then removed. Sterile bandage placed over injection site. There were no new motor deficits in the upper extremities following procedure. The patient tolerated the procedure well, carefully escorted to recovery room in stable condition. No apparent complications. After meeting discharge criteria, the patient discharged home. <ELECTRONICALLY SIGNED> By: Aldo Sharp DO 05/17/20 1101 1205 1228 Aldo Sharp DO /nt
== END ==
LOC: PAIN 06:55
PROVIDERS: ATTEND Anesthesiology Pain Medicine
DX: M50.10 Cervical disc disorder with radiculopathy, unspecified cervical region (principal); M47.22 Other spondylosis with radiculopathy, cervical region; G89.29 Other chronic pain; Z98.890 Other specified postprocedural states; Z79.899 Other long term (current) drug therapy; Z87.891 Personal history of nicotine dependence

== ENCOUNTER → 2020-06-27 | Outpatient (CLI) | payer BC, OTHER ==
[~2020-06-27] VITALS: Ht 175.3 cm; Wt 100.1 kg
--- NOTE | ~2020-06-27 | HPC ---
[facility] [place] [address] PAIN MANAGEMENT CONSULTATION Name: REY ZAMORA RAFAEL Room #: REG SRINIVAS GonzalezBhaveshTianBhavesh#: [id number] Admission: 06/27/20 Attend Phys: Aldo Sharp DO Discharge: Date of : 60 Report #: [id number] THIS REPORT FOR: cc: Ever Willams MD, Rene P. MD Johnson, James E. DO ~ CC: Aldo Willams DATE OF SERVICE: 06/27/2020 REFERRING PHYSICIAN: Dr. Ever Willams. CHIEF COMPLAINT: Neck pain, left upper extremity pain and paresthesias. HISTORY OF PRESENT ILLNESS: As you know, the patient is a 60-year-old male who returns today in followup visit to undergo next in the series of cervical epidural injections under fluoroscopic guidance. He is reporting pain today at level of 7/10. The patient is considering options for treatment and he is having continued to undergo cervical epidural injections. Though he does receive excellent benefit, he is considering possibly looking towards surgical procedure. He wishes to discuss this again today. He returns today in followup visit having discontinued his Xarelto 3 days ago in preparation for a cervical epidural injection under fluoroscopic guidance to address recurrent cervical radicular pain. ALLERGIES: No known drug allergies. CURRENT MEDICATIONS: Levothyroxine, Voltaren gel, Nucynta, alprazolam, Lunesta, pantoprazole, tamsulosin, ondansetron, sertraline, sucralfate, trazodone, Zetia, fluticasone. IMAGING: No new imaging available. SOCIAL HISTORY: Unchanged. He denies IV or illicit drug use. Denies any chronic alcohol use. He is working, not receiving workmen's compensation, unaccompanied today. PHYSICAL EXAMINATION: VITAL SIGNS: Blood pressure 132/92, pulse 101, respiratory rate 16 and unlabored. The patient is 96% on room air. Height 5 feet 9 inches tall, weight 220.6 pounds, BMI calculated 32.6. GENERAL: Well-developed, well-nourished, well-hydrated, exogenously obese 60-year-old male, appearing stated age, pain is rated today 7/10. HEENT: Normocephalic, atraumatic. Pupils are equal, round, [place] [address] PAIN MANAGEMENT CONSULTATION Name: REY ZAMORA RAFAEL Room #: REG SRINIVAS Sebastian#: [id number] Admission: 06/27/20 Attend Phys: Aldo Sharp DO Discharge: Date of : 60 Report #: [id number] Speech is fluent for patient. EXTREMITIES: Show no clubbing, no cyanosis. No appreciable edema. MUSCULOSKELETAL: Upper extremity strength is symmetrical again today 5/5. Muscle bulk and tone is symmetrical in comparing the upper extremities. Spurling's test is positive left, negative right. Cervical provocation testing is met with increasing pain, mainly with lateral flexion to the left and rotation to the left. ASSESSMENT: 1. Symptomatic cervical radiculopathy. 2. Cervical spondylosis with radiculopathy. 3. Displacement of cervical intervertebral disk with radiculopathy. 4. Chronic intractable pain. PLAN: 1. The patient returns today in followup visit with recurrent cervical radicular symptoms involving the neck and left upper extremity. He has done well with previous epidural injections, but unfortunately he believes he is losing efficacy and longevity with each shot. He returns today in followup visit to undergo next in the series in hopes of gaining back to long-term efficacy. He has stopped his Xarelto 3 days ago in preparation for the procedure. He has been advised of the risks and benefits, states understood and wished to proceed. 2. No medication changes made at today's visit. The patient did receive refills of his medications at our visit of 05/30/2020, and has medication available to take on an as needed basis. 3. The patient and I did discuss the other treatment options for cervical radiculopathy. He is considering possible surgical options. I have advised the patient if he is considering surgical options, we would need to get new MRI imaging to be able to refer the patient off to neurosurgery for evaluation. He will consider this option and if he does wish to move forward with imaging and surgical referral, he will contact our clinic. At that time, we will offer MRI referral and a referral to Neurosurgery, if requested. DESCRIPTION OF PROCEDURE: C6-C7 cervical epidural steroid injection under fluoroscopic guidance. After obtaining written consent, the patient was taken back to fluoroscopy suite, placed in prone position with separate pillows under chest and forehead to decrease cervical lordosis. Skin overlying the cervical area then prepped and draped in aseptic fashion. C6-C7 interspace was identified by AP fluoroscopy. Skin and subcutaneous tissue overlying target site injection anesthetized with 3 mL of 1% lidocaine. A 20-gauge 3-1/2 inch Tuohy needle advanced under fluoroscopic guidance towards the epidural space using a midline approach. The epidural space identified [address] [address] PAIN MANAGEMENT CONSULTATION Name: REY ZAMORA Room #: REG SRINIVAS Sebastian#: [id number] Admission: 06/27/20 Attend Phys: Aldo Sharp DO Discharge: Date of : 60 Report #: [id number] using loss of resistance to air technique. After negative aspiration for heme or cerebrospinal fluid, 1 mL of Omnipaque injected. Cervical epidurogram was confirmed using both AP and oblique fluoroscopy. After negative aspiration for heme or cerebrospinal fluid, 5 mL of a solution containing 2 mL 40 mg per mL, 80 mg total triamcinolone along with 3 mL of lidocaine 1% injected slowly. Needle then retracted approximately half way, flushed with 1 mL of 1% lidocaine and then removed. Sterile bandage placed over injection site. There were no new motor deficits present in the upper extremities following procedure. The patient tolerated the procedure well, carefully escorted to recovery room in stable condition. No apparent complication. After meeting discharge criteria, the patient discharged home. By: 1141 1452 Aldo Sharp DO /nt
[2020-06-27 12:32] VITALS: BP 132/92
--- NOTE | 2020-06-27 12:48 | NUR ---
Pain Clinic Assessment: 1. History of Osteoarthritis: spine History of Rheumatoid Arthritis: denies 2. Height: 5 ft. 9 in. 175.3 cm. Weight: 220.6 lb. oz. 100.064 kg. Patient's BMI: 32.6 3. Vital Signs: BP: 132/92 Pulse: 101 Resp: 16 Temp: 02 Sat: 96 ECG Mon: 4. Pain Intensity: 7 5. Fall Risk: Dizziness: Y Needs help standing or walking: N Fallen in the last 3 months: N Fall risk comments: 6. Patient on Blood Thinner: xarelto 7. History of Hypertension: N 8. Opioid Therapy greater than 6 weeks: Y Opiate Contract Signed: 09/22/18 9. Risk Assessment Tool Provided: low-2 10. Functional Assessment Tool: / 11. Recreational Drug Use: Never Drug Type: Tobacco Use: Former Smoker Tobacco Type: Amount or Packs/day: How Many Years: Alcohol Use: Yes Frequency: Quant:
== END | disposition home or self-care (01) ==
LOC: PAIN 07:00
PROVIDERS: ATTEND Anesthesiology Pain Medicine
DX: M50.10 Cervical disc disorder with radiculopathy, unspecified cervical region (principal); M47.22 Other spondylosis with radiculopathy, cervical region; G89.29 Other chronic pain; Z98.890 Other specified postprocedural states; Z79.899 Other long term (current) drug therapy; Z87.891 Personal history of nicotine dependence

== ENCOUNTER → 2020-07-18 | Outpatient (CLI) | payer BC, OTHER | LOC: MRI 14:12 | PROVIDERS: ATTEND Anesthesiology Pain Medicine | DX: M47.22 Other spondylosis with radiculopathy, cervical region (principal); M50.221 Other cervical disc displacement at C4-C5 level; M48.02 Spinal stenosis, cervical region ==

== ENCOUNTER → 2020-08-15 | Outpatient (CLI) | payer BC, OTHER ==
[~2020-08-15] VITALS: Ht 172.7 cm; Wt 102.1 kg
[2020-08-15 10:04] VITALS: BP 124/89
--- NOTE | 2020-08-15 10:09 | NUR ---
Pain Clinic Assessment: 1. History of Osteoarthritis: spine History of Rheumatoid Arthritis: denies 2. Height: 5 ft. 8 in. 172.7 cm. Weight: 225.0 lb. oz. 102.060 kg. Patient's BMI: 34.2 3. Vital Signs: BP: 124/89 Pulse: 70 Resp: 16 Temp: 02 Sat: 97 ECG Mon: 4. Pain Intensity: 8 5. Fall Risk: Dizziness: N Needs help standing or walking: N Fallen in the last 3 months: N Fall risk comments: 6. Patient on Blood Thinner: xarelto 7. History of Hypertension: N 8. Opioid Therapy greater than 6 weeks: Y Opiate Contract Signed: 09/22/18 9. Risk Assessment Tool Provided: low-2 10. Functional Assessment Tool: / 11. Recreational Drug Use: Never Drug Type: Tobacco Use: Former Smoker Tobacco Type: Amount or Packs/day: How Many Years: Alcohol Use: Yes Frequency: Special Occasions Quant: 1
--- NOTE | 2020-08-16 12:28 | HPC ---
[facility] [address] [place] [address] PAIN MANAGEMENT CONSULTATION Name: REY ZAMORA RAFAEL Room #: REG SRINIVAS GonzalezBhaveshTianBhavesh#: [id number] Admission: 08/15/20 Attend Phys: Aldo Sharp DO Discharge: Date of : 60 Report #: [id number] THIS REPORT FOR: cc: Ever Willams MD, Rene P. MD Johnson, James E. DO ~ DATE OF SERVICE: 08/15/2020 REFERRING PHYSICIAN: Ever Willams MD CHIEF COMPLAINT: Neck pain, left upper extremity pain and paresthesias. HISTORY OF PRESENT ILLNESS: As you know, the patient is a very pleasant 60-year-old male returning in followup visit to review recent MRI imaging and to discuss treatment options for his continued neck pain and left upper extremity pain with paresthesias. The patient denies new injury or trauma that may have led to symptom continuation. He states the previous cervical epidural injection only provided transient improvement in symptoms. Unfortunately, his symptoms returned. He is now placing pain at 8/10. He states his pain is constant, numbness, tingling, sharp, aching and shooting in sensation. He states pain is exacerbated with movement and lying down, improves with repositioning, rest, relaxation, medication management, and previous epidural injections. He returns to discuss treatment options and to review his recent MRI. ALLERGIES: No known drug allergies. CURRENT MEDICATIONS: Levothyroxine, Voltaren gel, Nucynta, alprazolam, Lunesta, pantoprazole, tamsulosin, sertraline, ondansetron, sucralfate, trazodone, Zetia, fluticasone. SOCIAL HISTORY: The patient denies tobacco, alcohol, IV or illicit drug use. He is unaccompanied at today's visit. IMAGING: MRI cervical spine obtained on 07/18/2020 shows a C1-C2, C2-C3 and C3-C4 were unremarkable. C4-C5 shows a left paracentral broad-based disk protrusion causing effacement of the ventral thecal sac, AP diameter of the canal was only mildly narrowed to 10.5 mm. Bilateral hypertrophic changes of the facet joints noted with left-sided neural foraminal narrowing. There is a slight effacement of the C5 nerve root on the left. C5-C6 shows small central disk protrusion causing effacement of the ventral thecal sac. Dimension of the canal was narrowed to 10 mm. There is uncovertebral joint hypertrophy and bilateral neural foraminal narrowing, greater on the right. C6-C7 shows disk desiccation; posterior disk osteophyte complex effacing the ventral thecal sac; uncovertebral joint hypertrophy, greater on the left; severe bilateral neural foraminal stenosis, left greater than right with effacement of the exiting left [facility] [address] [place] [address] PAIN MANAGEMENT CONSULTATION Name: REY ZAMORA RAFAEL Room #: REG SRINIVAS Sebastian#: [id number] Admission: 08/15/20 Attend Phys: Aldo Sharp DO Discharge: Date of : 60 Report #: [id number] C7 nerve root. Findings have progressed since 2016. C7-T1 unremarkable. PHYSICAL EXAMINATION: VITAL SIGNS: Blood pressure 124/89, pulse is 70, respiratory rate 16 and unlabored. The patient is 97% on room air. Height 5 feet 8 inches tall, weight 225 pounds, BMI calculated 34.2. GENERAL: Well-developed, well-nourished, well-hydrated, exogenously obese 60-year-old male appearing stated age. He is placing current pain score at around 8/10. HEENT: Normocephalic, atraumatic. Pupils equal, round and reactive. EXTREMITIES: Show no clubbing, no cyanosis. No appreciable edema. MUSCULOSKELETAL: Upper extremity strength remains symmetrical 5/5. Deep tendon reflexes are symmetrical at biceps, brachialis and triceps. Spurling's test positive on the left in a C7 dermatomal distribution and pattern. Cervical provocation testing including rotation, lateral flexion to the left also intensify neck and left upper extremity pain. ASSESSMENT: 1. Symptomatic cervical radiculopathy. 2. Displacement of cervical intervertebral disk with radiculopathy. 3. Cervical spondylosis with radiculopathy. 4. Neural foraminal stenosis of the cervical spine. 5. Chronic intractable pain. PLAN: 1. The patient returns today in followup visit where we have spent over 22 minutes of time reviewing the patient's recent MRI and how the findings therein correlate to the patient's symptoms. It would appear the patient is suffering from neural foraminal stenosis issues from the C7 distribution. His symptoms have progressively worsened with Spurling's test and lateral flexion to the left consistent with neural foraminal compromise. The patient has noted over the past couple of injections lessening efficacy, which would indicate that the progression of his findings from 2016 have caused more greater compressive forces across the C7 nerve roots and thus is more of a mechanical process than is an inflammatory process. He is considering surgical options at this time. He returns today in followup visit to discuss his impending surgical consultation with Dr. Kelley's nurse practitioner at [facility]. The patient is to take his new MRI and the official documentation with him to that appointment. We have taken the liberty of providing the patient with a disc and a copy of his official report. He is going to contact our clinic after he has had a discussion with the nurse practitioner about the plans for surgery if deemed appropriate. Given the fact that he is suffering from ongoing cervical radicular symptoms that do not show good and prolonged resolution with epidural injections, I do feel this is an appropriate next step. 2. We will continue the patient on his Nucynta for pain control. We are utilizing Nucynta because it has a dual effect affecting not only norepinephrine [facility] [address] [place] [address] PAIN MANAGEMENT CONSULTATION Name: REY ZAMORA Room #: REG [facility] [id number] Admission: 08/15/20 Attend Phys: Aldo Sharp DO Discharge: Date of : 60 Report #: [id number] reuptake inhibition, but also mu receptor. I have given the patient is a 75 mg tablet to take 4 times a day p.r.n. for pain. I have given him releases of today and 4 weeks from today, 2 months' worth of medication. The patient was advised to safeguard all medications. 3. We plan to see the patient back in followup visit on an as needed basis. He will keep us apprised of his discussion and plans with Neurosurgery in regards to his cervical radiculopathy, unresolved with conservative treatment options. <ELECTRONICALLY SIGNED> By: Aldo Sharp DO 08/16/20 1228 1244 15 Aldo Sharp DO /nt
== END ==
LOC: PAIN 08-01 06:58
PROVIDERS: ATTEND Anesthesiology Pain Medicine
DX: M47.22 Other spondylosis with radiculopathy, cervical region (principal); M50.10 Cervical disc disorder with radiculopathy, unspecified cervical region; M79.605 Pain in left leg; R20.2 Paresthesia of skin; G89.29 Other chronic pain; Z88.8 Allergy status to other drugs, medicaments and biological substances; Z79.899 Other long term (current) drug therapy

== ENCOUNTER → 2021-05-16 | Outpatient (CLI) | payer BC, OTHER ==
[~2021-05-16] VITALS: Ht 175.3 cm; Wt 108.0 kg
[~2021-05-16] MED LIST changes: +NUCYNTA50 MG PO; +XARELTO20 MG PO
[2021-05-16 10:18] VITALS: BP 129/90
--- NOTE | 2021-05-16 10:29 | NUR ---
Pain Clinic Assessment: 1. History of Osteoarthritis: spine History of Rheumatoid Arthritis: denies 2. Height: 5 ft. 9 in. 175.3 cm. Weight: 238.2 lb. oz. 108.047 kg. Patient's BMI: 35.2 3. Vital Signs: BP: 129/90 Pulse: 76 Resp: 16 Temp: 02 Sat: 97 ECG Mon: 4. Pain Intensity: 8 5. Fall Risk: Dizziness: N Needs help standing or walking: N Fallen in the last 3 months: N Fall risk comments: 6. Patient on Blood Thinner: xarelto 7. History of Hypertension: N 8. Opioid Therapy greater than 6 weeks: Y Opiate Contract Signed: 09/22/18 9. Risk Assessment Tool Provided: low-2 10. Functional Assessment Tool: / 11. Recreational Drug Use: Never Drug Type: Tobacco Use: Former Smoker Tobacco Type: Amount or Packs/day: How Many Years: Alcohol Use: Yes Frequency: Special Occasions Quant: 2-3
--- NOTE | 2021-05-30 09:51 | HPC ---
[facility] [place] [address] PAIN MANAGEMENT CONSULTATION Name: ZAMORAREY RAFAEL Room #: REG SRINIVAS GonzalezBhaveshTianBhavesh#: [id number] Admission: 05/16/21 Attend Phys: Aldo Sharp DO Discharge: Date of : 60 Report #: [id number] THIS REPORT FOR: cc: Ever Willams MD, Rene P. MD Johnson, James E. DO ~ cc: Ever Willams MD DATE OF SERVICE: 05/16/2021 CHIEF COMPLAINT: Continued neck pain. HISTORY OF PRESENT ILLNESS: As you know, the patient is a 61-year-old male referred to our service years ago for neck pain, intermittent low back pain. He has been treated with conservative treatment for his chronic neck pain, undergoing cervical epidural injections and medication management. He has completed C6-7 anterior cervical diskectomy and fusion with allograft in 10/2020, but despite this surgery, he continues to explain pain at the level of 8/10. Pain is mostly in the neck and left shoulder all the way to the arm and hand. He describes the pain as chronic in nature. He describes his pain as constant, numbness, tingling, sharp, aching and intermittent sensation, exacerbated with movement and lying down, improves with repositioning and medications. He returns today in followup visit requesting refill on medications. He is actively participating in physical therapy, has been released by Neurosurgery as he has been optimized from their standpoint. He returns to discuss the possibility of continuing medications for a short-term treatment course. ALLERGIES: No known drug allergies. CURRENT MEDICATIONS: Xarelto 20 mg once a day, Nucynta 75 mg up to 3 times a day, levothyroxine 100 mcg per day, Voltaren gel applied topically 3 times a day, fluticasone 1 spray each nostril per day, Zetia 10 mg per day, trazodone 50 mg p.o. at bedtime, sucralfate 1 gram per day, sertraline 50 mg per day, ondansetron 4 mg p.r.n., tamsulosin 0.4 mg once a day, pantoprazole 40 mg once a day, Lunesta 3 mg p.o. at bedtime, Xanax 1 mg every day. SOCIAL HISTORY: The patient denies tobacco, IV or illicit drug use. He is a reformed smoker. He is unaccompanied at today's visit. IMAGING: No new imaging available. PHYSICAL EXAMINATION: VITAL SIGNS: Blood pressure 129/90, pulse 76, respiratory rate 16 and unlabored. The patient 97% on room air. Height 5 feet 9 inches tall, weight 238.2 pounds, BMI calculated 35.2. GENERAL: Well-developed, well-nourished, well[place] [address] PAIN MANAGEMENT CONSULTATION Name: REY ZAMORA Room #: REG [facility] [id number] Admission: 05/16/21 Attend Phys: Aldo Sharp DO Discharge: Date of : 60 Report #: [id number] 61-year-old male, pain is rated today around 8/10. HEENT: Normocephalic, atraumatic. Pupils are equal, round and responsive. EXTREMITIES: Show no clubbing, no cyanosis and no edema. MUSCULOSKELETAL: Upper extremity strength is equal and symmetrical 5/5 intact to light touch from C5 through T1 dermatomes. Active and passive range of motion of the bilateral shoulders causing no increase in overall pain. Cervical provocation is met with no increase in pain. ASSESSMENT: 1. Chronic neck pain. 2. Left shoulder pain. 3. Cervical radiculopathy. 4. Chronic low back pain. 5. Opioid dependency. PLAN: 1. The patient returns today in followup visit where we have had a long discussion about the use of opioid medication in both surgical conditions. The patient has been on 75 mg Nucynta 3 times a day for an extended period of time. The fact that he has had surgery to address the C6-7 level would indicate that he should start to see some improvement in symptoms. If he continues to experience neuropathic symptoms, then medications to address that issue needs to be discussed. We discussed this with the patient today. The medications most appropriate to treat neuropathic symptoms are those of amitriptyline, nortriptyline, Cymbalta, Lyrica or gabapentin. The use of long-term Nucynta is not indicated for chronic cervical radicular symptoms and cannot be sustained long-term. We discussed this with the patient today. I have provided him with a prescription of Nucynta with the understanding that this treatment is only temporary in nature. Adjustments with neuropathic medications or a possible cord stimulator would be recommended if symptoms do not improve. The patient is understanding. 2. We reviewed the fact that opiate medications are being used to provide analgesia adequate to support activities of daily living, not attempting to achieve a specific pain score on the 0-10 Visual Analog Scale. The current opiate medications are providing sufficient analgesia to allow the patient to participate in activities of daily living. The patient is not exhibiting any aberrant behavior suggestive of drug diversion. The patient is not having any adverse reactions to medications. The patient is not suffering from daytime somnolence or mental acuity changes. The patient is managing opiate-induced constipation with appropriate [id number]-svfavig agents and dietary considerations. The patient was counseled on concern for caution with operating a motor vehicle while using opiate medications. A physical exam was performed and the patient's functional status was evaluated. All patients with back pain were advised against the bed rest greater than 4 days and were advised to return to normal activities. Pain score assessment was [facility] [address] [place] [address] PAIN MANAGEMENT CONSULTATION Name: REY ZAMORA RAFAEL Room #: REG SWATIMadison Sebastian#: [id number] Admission: 05/16/21 Attend Phys: Aldo Sharp DO Discharge: Date of : 60 Report #: [id number] noted and the treatment plan was reviewed with the patient. All current medications, both prescribed and OTC were reviewed and reconciled on the electronic medical record. Tobacco screening was accomplished and smoking cessation was advised when indicated. BMI was noted and diet/exercise modification was recommended for all patients following outside normal parameters. I reviewed with the patient today their responsibilities to safeguard prescription medications, reviewed their responsibility to utilize medications only as prescribed by the physician. They are to seek and receive pain medications only from 1 physician group ([facility]). They are to use 1 pharmacy and keep the clinic informed if they change pharmacies. Their responsibilities include making followup visits in a timely fashion and to avoid abrupt discontinuation of medication usage. Their responsibilities further include bringing their medications (bottles from the pharmacy with residual pills) to the visit for possible confirmation of pill counts and the patient understands it is their responsibility to submit to random drug screens to ensure both that the medications prescribed are present, and that no other controlled substances are present. All prescriptions provided today were generated electronically. 3. The patient was provided prescription of Nucynta 50 mg dose 1 tab p.o. t.i.d. I have given the patient #90 tablets a 1-month prescription. The prescription was sent via e-scribe through his local pharmacy. Time spent with the patient in consultation, reviewing any pertinent imaging and recent clinical notes, performing a physical exam and correlation of the physical exam and the medical documentation to determine treatments, 15 minutes. Time spent in preparation for appointment, reviewing prescription, monitoring system, reviewing previous reports and notes and reviewing current medications, 5 minutes. Time spent with preparing and sending electronic prescriptions and documentation of visit and plan, 10 minutes. Total time spent is 30 minutes. <ELECTRONICALLY SIGNED> By: Aldo Sharp DO 05/30/21 [id number] Aldo Sharp DO /nt
== END ==
LOC: PAIN 03-21 07:03
PROVIDERS: ATTEND Anesthesiology Pain Medicine
DX: M54.12 Radiculopathy, cervical region (principal); M25.512 Pain in left shoulder; G89.29 Other chronic pain; Z79.891 Long term (current) use of opiate analgesic; Z79.899 Other long term (current) drug therapy

== ENCOUNTER → 2021-11-20 | Outpatient (CLI) | payer BC, OTHER ==
[~2021-11-20] VITALS: Ht 175.3 cm; Wt 102.4 kg
[~2021-11-20] MED LIST changes: +XARELTO10 M1 PO
[2021-11-20 10:34] VITALS: BP 139/86
--- NOTE | 2021-11-20 10:49 | NUR ---
Pain Clinic Assessment: 1. History of Osteoarthritis: spine History of Rheumatoid Arthritis: denies 2. Height: 5 ft. 9 in. 175.3 cm. Weight: 225.8 lb. oz. 102.422 kg. Patient's BMI: 33.3 3. Vital Signs: BP: 139/86 Pulse: 71 Resp: 16 Temp: 02 Sat: 97 ECG Mon: 4. Pain Intensity: 8 5. Fall Risk: Dizziness: Y Needs help standing or walking: N Fallen in the last 3 months: N Fall risk comments: 6. Patient on Blood Thinner: xarelto 7. History of Hypertension: N 8. Opioid Therapy greater than 6 weeks: Y Opiate Contract Signed: 09/22/18 9. Risk Assessment Tool Provided: low-2 10. Functional Assessment Tool: / 11. Recreational Drug Use: Never Drug Type: Tobacco Use: Former Smoker Tobacco Type: Amount or Packs/day: How Many Years: Alcohol Use: Yes Frequency: Special Occasions Quant: 2
== END ==
LOC: PAIN 07:03
PROVIDERS: ATTEND Clinical Nurse Specialist Adult Health
DX: M54.12 Radiculopathy, cervical region (principal); M54.2 Cervicalgia; M54.50 Low back pain, unspecified; G89.29 Other chronic pain; F11.20 Opioid dependence, uncomplicated; Z79.899 Other long term (current) drug therapy